=== PATIENT | female | born 1995 | race Two or more races ===

== ENCOUNTER 2024-07-24 08:07 | Outpatient (CLI) | payer OTHER | END 2024-07-24 08:13 | disposition home or self-care (01) | LOC: SONOGRAMA 08:07 | PROVIDERS: ATTEND Student in an Organized Health Care Education/Training Program | DX: R10.2 Pelvic and perineal pain (principal) ==

== ENCOUNTER 2024-10-05 12:27 | Outpatient (CLI) | payer OTHER ==
[2024-10-05 13:04] LABS: BASO % 0.5 % (0.1-1.2); EOS # 0.12 (0.04-0.54); HEMATOCRIT 36.7 % (34.1-44.9); HEMOGLOBIN 12.3 g/dL (11.2-15.7); LYMPH # 1.76 (1.18-3.74); LYMPH % 28.9 % (19.3-53.1); MEAN CORPUSCULAR HEMOGLOBIN 28.7 pg (25.6-32.2); MONO # 0.41 (0.24-0.82); MONO % 6.7 % (4.7-12.5); NEUT # 3.75 (1.56-6.13); NEUT % 61.7 % (34.0-71.1); PLATELET COUNT 234 K/uL (163-369); RED BLOOD COUNT 4.28 M/uL (3.93-5.22); RED CELL DISTRIBUTION WIDTH 12.9 % (11.6-14.4)
[2024-10-05 13:15] LABS: ERYTHROCYTE SEDIMENTATION RATE 3 mm/hr (0-20)
[2024-10-05 13:40] LABS: ALBUMIN 3.7 gm/dL (3.4-5.0); ALKALINE PHOSPHATASE 58 U/L (50-136); ALT/SGPT 25 U/L (12-78); ANION GAP 6 (10.0-20.0); AST/SGOT 18 U/L (15-37); BILIRUBIN TOTAL 0.43 mg/dL (0.3-1.2); BLOOD UREA NITROGEN 18 mg/dL (7-18); BUN CREA RATIO 20 (7.0-25.0); CALCIUM 9.1 mg/dL (8.5-10.1); CARBON DIOXIDE 30 mEq/L (21-32); CHLORIDE 109 mmol/L (98-107); CREATININE SERUM 0.89 mg/dL (0.55-1.02); GFR 73.98; GLOBULINA 3.3 G/DL (2.4-3.5); GLUCOSE FASTING 98 mg/dL (65-100); LDH 117 U/L (84-246); OSMOLALITY SERUM 283 MOSM/KG (275-295); POTASSIUM 3.99 mEq/L (3.5-5.1); SODIUM 141 mmol/L (136-145)
[2024-10-05 13:44] LABS: C-REACTIVE PROTEIN < 0.29 MG/DL (0.00-0.29)
== END 2024-10-05 12:29 | disposition home or self-care (01) ==
LOC: LAB 12:27
PROVIDERS: ATTEND General Practice
DX: C77.0 Secondary and unspecified malignant neoplasm of lymph nodes of head, face and neck (principal); D64.9 Anemia, unspecified; Z01.21 Encounter for dental examination and cleaning with abnormal findings

== ENCOUNTER → 2024-10-05 | Outpatient (CLI) | payer OTHER | END | disposition home or self-care (01) | LOC: SONOGRAMA 14:30 | PROVIDERS: ATTEND Emergency Medicine | DX: C77.0 Secondary and unspecified malignant neoplasm of lymph nodes of head, face and neck (principal) ==

== ENCOUNTER 2025-02-22 07:14 | Outpatient (CLI) | payer OTHER | END 2025-02-22 07:25 | disposition home or self-care (01) | LOC: TOM 07:14 | PROVIDERS: ATTEND Internal Medicine Hematology & Oncology | DX: R59.0 Localized enlarged lymph nodes (principal) ==